=== PATIENT | male | born 2000 | race American Indian/Alaskan Native ===

== ENCOUNTER 2020-03-15 01:16 | Emergency (ER) | payer OTHER ==
[2020-03-15 02:28] VITALS: BP 101/73
[2020-03-15] MEDS ORDERED: predniSONE 20 MG TAB PO ONE (03:55)
[2020-03-15] MEDS ORDERED: IBUPROFEN 600 MG TAB PO ONE (03:55)
--- NOTE | 2020-03-15 04:07 | XRay Report ---
CHEST 1 VIEW INDICATION: Chest Pain COMPARISON: none FINDINGS: SUPPORT DEVICES: None. HEART / MEDIASTINUM: No significant abnormality. LUNGS / PLEURA: No significant pulmonary or pleural abnormality. No pneumothorax. ADDITIONAL FINDINGS: IMPRESSION: 1. No acute cardiopulmonary disease Signer Name: Jin Borden MD Signed: 03/15/2020 4:03 AM Workstation Name: [id number]
--- NOTE | 2020-03-15 04:22 | Emergency Department Report ---
ED General Adult HPI - General Chief complaint: Chest Pain Stated complaint: BAD CHEST PAIN/FULL BODY PAIN Source: patient Mode of arrival: Ambulatory Limitations: No Limitations - History of Present Illness Initial comments: Patient is a 20-year-old -[place] male with no past medical history except chronic tobacco abuse who presents to the ED with complaint of acute on set persistent dry cough with pleuritic chest pain for the last 2 days worse in the last 24 hours. Patient states that he also developed diffuse body aches and pains in the last 2 days. Patient denies dizziness, syncope, sore throat, shortness of breath, abdominal pain, nausea, vomiting, fever, chills, headache, back pain, change in vision, sore throat, dysuria, urinary frequency and urgency and testicular pain. MD Complaint: Diffuse chest wall pain, chills and body aches, mild dry cough -: Sudden, days(s) (2) Location: chest Radiation: non-radiation Severity scale (0 -10): 3 Quality: aching, sharp Consistency: constant Improves with: none Worsens with: none Associated Symptoms: denies other symptoms, chest pain, cough, malaise. denies: confusion, diaphoresis, fever/chills, headaches, loss of appetite, nausea/vomiting, rash, seizure, shortness of breath, syncope, other Treatments Prior to Arrival: none - Related Data Previous Rx's Medication Instructions Recorded Last Taken Type Azithromycin [Zithromax Z-CLOVIS] 250 mg PO DAILY #6 tablet 03/15/20 Unknown Rx Brompheniramine/Pseudoephed/Dm 5 ml PO Q6H PRN #118 ml 03/15/20 Unknown Rx [Bromfed Dm Cough Syrup] Cyclobenzaprine HCl [Flexeril 5 MG 5 mg PO Q8H PRN #12 tab 03/15/20 Unknown Rx TAB] Ibuprofen [Motrin] 600 mg PO Q8H PRN #24 tablet 03/15/20 Unknown Rx Allergies Allergy/AdvReac Type Severity Reaction Status Date / Time No Known Allergies Allergy Unverified 03/15/20 02:54 ED Review of Systems ROS: Stated complaint: BAD CHEST PAIN/FULL BODY PAIN Other details as noted in HPI Constitutional: denies: chills, fever Eyes: denies: eye pain, eye discharge, vision change ENT: denies: ear pain, throat pain Respiratory: cough. denies: shortness of breath, wheezing Cardiovascular: chest pain (pleuritic chest pain). denies: palpitations Endocrine: no symptoms reported Gastrointestinal: denies: abdominal pain, nausea, vomiting, diarrhea Genitourinary: denies: urgency, dysuria Musculoskeletal: arthralgia, myalgia. denies: back pain, joint swelling Skin: denies: rash, lesions Neurological: denies: headache, weakness, paresthesias Psychiatric: denies: anxiety, depression Hematological/Lymphatic: denies: easy bleeding, easy bruising ED Past Medical Hx - Past Medical History Additional medical history: heart murmur - Surgical History Past Surgical History?: No - Social History Smoking Status: Never Smoker Substance Use Type: None - Medications Home Medications: Home Medications Medication Instructions Recorded Confirmed Last Taken Type Azithromycin [Zithromax Z-CLOVIS] 250 mg PO DAILY #6 tablet 03/15/20 Unknown Rx Brompheniramine/Pseudoephed/Dm 5 ml PO Q6H PRN #118 ml 03/15/20 Unknown Rx [Bromfed Dm Cough Syrup] Cyclobenzaprine HCl [Flexeril 5 MG 5 mg PO Q8H PRN #12 tab 03/15/20 Unknown Rx TAB] Ibuprofen [Motrin] 600 mg PO Q8H PRN #24 tablet 03/15/20 Unknown Rx ED Physical Exam - General Limitations: No Limitations General appearance: alert, in no apparent distress - Head Head exam: Present: atraumatic, normocephalic, normal inspection - Eye Eye exam: Present: normal appearance, PERRL, EOMI Pupils: Present: normal accommodation - ENT ENT exam: Present: normal exam, normal orophraynx, mucous membranes moist, TM's normal bilaterally, normal external ear exam - Neck Neck exam: Present: normal inspection, full ROM - Respiratory Respiratory exam: Present: normal lung sounds bilaterally. Absent: respiratory distress, wheezes, rales, chest wall tenderness - Cardiovascular Cardiovascular Exam: Present: regular rate, normal rhythm, normal heart sounds. Absent: systolic murmur, diastolic murmur, rubs, gallop - GI/Abdominal GI/Abdominal exam: Present: soft, normal bowel sounds. Absent: tenderness, guarding, hyperactive bowel sounds, hypoactive bowel sounds - Extremities Exam Extremities exam: Present: normal inspection, full ROM, normal capillary refill - Back Exam Back exam: Present: normal inspection, full ROM. Absent: tenderness, CVA tender ness (R), CVA tenderness (L), muscle spasm, paraspinal tenderness, vertebral tenderness - Neurological Exam Neurological exam: Present: alert, oriented X3, CN II-XII intact, normal gait, reflexes normal - Psychiatric Psychiatric exam: Present: normal affect, normal mood - Skin Skin exam: Present: warm, dry, intact, normal color. Absent: rash ED Course Vital Signs 03/15/20 01:20 Temperature 98.2 F Pulse Rate 89 Respiratory 17 Rate Blood Pressure 101/73 O2 Sat by Pulse 98 Oximetry ED Medical Decision Making - Radiology Data Radiology results: report reviewed, image reviewed Findings [facility] [address] [place] [address] XRay Report Signed Patient: JOSSIE LOPEZ MR#: [id number] : 2000 Acct:[id number] Age/Sex: 20 / M ADM Date: 03/15/20 Loc: ED Attending Dr: Ordering Physician: Lacey Michelle MD Date of Service: 03/15/20 Procedure(s): XR chest 1V ap Accession Number(s): [id number] cc: Lacey Michelle MD Fluoro Time In Minutes: CHEST 1 VIEW INDICATION: Chest Pain COMPARISON: none FINDINGS: SUPPORT DEVICES: None. HEART / MEDIASTINUM: No significant abnormality. LUNGS / PLEURA: No significant pulmonary or pleural abnormality. No pneumothorax. ADDITIONAL FINDINGS: IMPRESSION: 1. No acute cardiopulmonary disease Signer Name: Jin Borden MD Signed: 03/15/2020 4:03 AM Workstation Name: [id number] Transcribed By: WG Dictated By: Jin Borden MD Electronically Authenticated By: Jin Borden MD Signed Date/Time: 03/15/20402 DD/ 1 TD/TT: - Medical Decision Making This is a 20-year-old -[place] male with no past medical history except chronic tobacco abuse who presents to the ED with complaint of acute onset persistent dry cough with pleuritic chest pain for the last 2 days worse in the last 24 hours. Patient states that he also developed diffuse body aches and pains in the last 2 day. In the ED, patient is alert and oriented x3 and is not in any distress. Patient was treated for pain in the ED and chest x-ray shows no acute cardiopulmonary abnormalities or pneumonitis. Patient was discharged home on medications and advised follow-up with his primary care physician in 5 to 7 days for reevaluation or return to the ED immediately if symptoms get worse. - Differential Diagnosis Acute costochondritis; bronchitis; muscle spasm; muscle strain; URI Critical care attestation.: If time is entered above; I have spent that time in minutes in the direct care of this critically ill patient, excluding procedure time. ED Disposition Clinical Impression: Acute costochondritis Acute bronchitis Qualifiers: Bronchitis organism: other organism Qualified Code(s): J20.8 - Acute bronchitis due to other specified organisms Disposition: - TO HOME OR SELFCARE Is pt being admited?: No Does the pt Need Aspirin: No Condition: Stable Instructions: Acute Bronchitis (ED), Costochondritis (ED) Additional Instructions: Chest x-ray showed no acute cardiopulmonary abnormalities. Therefore take medication with food, drink plenty of fluids and follow-up with your primary care physician in 5 to 7 days for reevaluation. Return to the ED immediately if symptoms get worse. Prescriptions: Brompheniramine/Pseudoephed/Dm [Bromfed Dm Cough Syrup] 5 ml PO Q6H PRN #118 ml PRN Reason: Cough Cyclobenzaprine HCl [Flexeril 5 MG TAB] 5 mg PO Q8H PRN #12 tab PRN Reason: Muscle Spasm Ibuprofen [Motrin] 600 mg PO Q8H PRN #24 tablet PRN Reason: Pain Azithromycin [Zithromax Z-CLOVIS] 250 mg PO DAILY #6 tablet Referrals: [facility] [Provider Group] - 3-5 Days Time of Disposition: 04:20 Print Language: GREEK
== END 2020-03-15 04:41 | disposition home or self-care (01) ==
LOC: ED 01:16
DX: M94.0 Chondrocostal junction syndrome [Tietze] (principal); J20.8 Acute bronchitis due to other specified organisms; Z79.899 Other long term (current) drug therapy
CPT/HCPCS: 71045; 93005; 99283; J7512